=== PATIENT | male | born 1955 | race Two or more races ===

== ENCOUNTER 2023-08-16 19:41 | Inpatient (IN) | payer OTHER, MEDICAID ==
[~2023-08-16] VITALS: Ht 175.3 cm; Wt 103.6 kg
[2023-08-16 19:50] VITALS: PULSE 110; RESP 20; O2SAT 95
[2023-08-16] MEDS ORDERED: DOCUSATE SOD 100 MG CAP PO PRN (21:45)
[2023-08-16] MEDS ORDERED: hydrALAZINE HCL 20 MG/ML VL IV PRN (21:45)
[2023-08-16] MEDS ORDERED: ONDANSETRON HCL 4 MG/2 ML VIAL IV PRN (21:45)
[2023-08-16] MEDS ORDERED: NITROGLYCERIN 0.4 MG SL TAB SL PRN (23:45)
[2023-08-16] MEDS ORDERED: MORPHINE SULFATE INJ 2 MG/ml SYRG IV PRN (23:45)
[2023-08-17] VITALS (9 sets, daily range): BP systolic 99–124; BP diastolic 59–76; PULSE 66–123; RESP 18–20; TEMP 97.4–98.7; O2SAT 10–98
[2023-08-17] MEDS: SODIUM CHLORIDE 0.9% 1,000 ML IV SCH (00:47)
[2023-08-17] MEDS: ATORVASTATIN 20 MG TAB PO SCH (00:57)
[2023-08-17] MEDS ORDERED: ASPI-543 PO (03:49)
[2023-08-17] MEDS ORDERED: SACU1TAB7 PO (03:49)
[2023-08-17] MEDS ORDERED: CYCL-614 PO (03:49)
[2023-08-17] MEDS ORDERED: SIMV20TA20 PO (03:49)
[2023-08-17] MEDS ORDERED: IBUP-1455 PO (03:49)
[2023-08-17] MEDS ORDERED: ONDA-188 PO (03:49)
[2023-08-17] MEDS ORDERED: DOCU-265 PO (03:49)
[2023-08-17] MEDS ORDERED: NIFE1TAB30 (03:49)
[2023-08-17 06:15] LABS: Basophils # (auto) 0 10 ^3/uL (0-0.2); Basophils % (auto) 0.4 % (0.0-2.0); Eosinophils # (auto) 0.4 10 ^3/uL (0-0.8); Eosinophils % (auto) 4.5 % (0.0-7.0); Hematocrit 42.9 % (41.0-53.0); Hemoglobin 14.8 g/dL (13.5-17.5); Lymphocytes # (auto) 0.9 10 ^3/uL (0.4-5.4); Lymphocytes % (auto) 9.9 % (10.0-50.0); Mean Corpuscular Hemoglobin 32.2 pg (28.0-32.0); Mean Corpuscular Hgb Conc. 34.5 g/dL (32.0-36.0); Mean Corpuscular Volume 93.3 fL (80.0-100.0); Monocytes # (auto) 0.6 10 ^3/uL (0-1.3); Monocytes % (auto) 6.5 % (0.0-12.0); Neutrophils # (auto) 7.1 10 ^3/uL (1.6-8.6); Neutrophils % (auto) 78.7 % (37.0-80.0); Red Blood Cells 4.59 10^6/uL (4.5-5.90); Red Cell Distribution Width 13.7 % (11.8-14.3)
[2023-08-17] MEDS: IBUPROFEN 600 MG TAB PO PRN (06:38)
[2023-08-17 06:41] LABS: Alanine Aminotransferase 18 U/L (7-40); Albumin 4.2 g/dL (3.2-4.8); Alkaline Phosphatase 75 U/L (46-116); Anion Gap 4 (5-15); Aspartate Aminotransferase 9 U/L (13-40); BUN/Creatinine Ratio 27.5 (10.0-20.0); Blood Urea Nitrogen 19 mg/dL (9-23); Calcium 9.8 mg/dL (8.7-10.4); Carbon Dioxide 27 mmol/L (20-30); Chloride 108 mmol/L (98-107); Glucose 123 mg/dL (74-106); Potassium 4.1 mmol/L (3.5-5.1); Sodium 139 mmol/L (136-145)
[2023-08-17] MEDS: ASPirin 81 mg TAB PO SCH (11:56)
[2023-08-17] MEDS: TAMSULOSIN HYDROCHLORIDE 0.4 MG CAP PO SCH (18:21)
[2023-08-17] MEDS: HYDROcodone-ACET 5/325MG TAB PO PRN (18:28)
[2023-08-18] VITALS (7 sets, daily range): BP systolic 100–115; BP diastolic 61–69; PULSE 89–103; RESP 14–19; TEMP 36.8; O2SAT 94–98
[2023-08-18] MEDS ORDERED: TRAM50TA2 PO (12:06)
== END 2023-08-18 18:45 | disposition home or self-care (01) | DRG 698 ==
LOC: ER 19:41 → EDBD 19:41 → OVERFLOW 23:46 → WEST WING 08-17 01:45
PROVIDERS: ADMIT Nurse Practitioner Family; ATTEND Nurse Practitioner Family
PROC: 0T9B70Z Drainage of Bladder with Drainage Device, Via Natural or Artificial Opening (ICD-10-PCS; principal; 2023-08-17)
DX: T83.010A Breakdown (mechanical) of cystostomy catheter, initial encounter (principal); R53.2 Functional quadriplegia; Z74.01 Bed confinement status; Y73.2 Prosthetic and other implants, materials and accessory gastroenterology and urology devices associated with adverse incidents; Z86.73 Personal history of transient ischemic attack (TIA), and cerebral infarction without residual deficits; Y92.89 Other specified places as the place of occurrence of the external cause
CPT/HCPCS: 36415; 51705; 80053; 85025; G0378